=== PATIENT | female | born 1965 | race Caucasian/White ===

== ENCOUNTER → 2017-02-09 | Day surgery (SDC) | payer SELFPAY ==
[~2017-02-09] VITALS: Ht 154.9 cm; Wt 67.6 kg
[~2017-02-09] MED LIST: *HYDROmorphone PF 1 MG VIAL PERIprocedural Use ONLY ONE; *morphine SULFATE 8 MG/ML PERIprocedure ONLY ONE; ACETAMINOPHEN 1000 MG/100 ML 100 ML IV ONE; ACETAMINOPHEN/HYDROcodone 325 MG/7.5 MG TAB PO PRN; BUPIVACAINE/EPINEPHRINE 0.5% 50 ML VIAL ONE; CHLORHEXIDINE GLUCONATE 2 % 1 PACK (2 CLOTHS) TOPICAL PRN; CITA40TA4 PO; DEXAMETHASONE SOD PHOS 4 MG/ML VIAL ONE; DO NOT ADM ANY ANTICOAGULANT DRUGS PRN; FAMOTIDINE 20 MG/2 ML VIAL ONE; GENTAMICIN SULFATE 80 MG/2 ML VIAL ONE; HYDR-3533 PO; HYDR-3580 PO; INSULIN HUMAN REGULAR 1,000 UNITS/10 ML VIAL SQ PRN; LACTATED RINGER'S 1000 ML INJ 2,000 ML IV ONE; LACTATED RINGER'S 1000 ML IV PRN; LIDOCAINE HCL 1% PF 5 ML AMPULE OTHER ONE; METOPROLOL TARTRATE 25 MG TAB PO PRN; MIDAZOLAM HCL 2 MG/2 ML VIAL IV ONE; MIDAZOLAM HCL 2 MG/2 ML VIAL ONE; MORPHINE SULFATE 4 MG/ML INJ IV PUSH PRN; ONDANSETRON HCL 4 MG/2 ML VIAL IV PUSH ONE; POVIDONE IODINE 5% (ANTISEPSIS KIT) 4 APPLICATIONS EACH NARE PRN; PROPOFOL 200 MG/20 ML AMP IV ONE; SODIUM CHLORID 0.9% 500 ML IV PRN; TRIL150T PO; VANCOMYCIN 1000 MG/NS 250 ML (for <70 kg) IV SCH; ceFAZolin 2 GM PREMIX 50 ML IV SCH
[2017-02-09] MEDS: CHLORHEXIDINE GLUCONATE 4% SOLN 120 ML BTL TOPICAL SCH ×2 (06:48→06:57)
--- NOTE | 2017-02-09 09:43 | PD.OP ---
cc: Dariel Alfonso MD Operative Report Date of Surgery: Feb 09, 2017 Preoperative Diagnosis: Displaced right distal radius fracture Postoperative Diagnosis: Procedure: Open reduction total fixation right distal radius Anesthesia: Gen. Surgeon: Dariel Alfonso Operating Room Assistant(s): KRISTEN Louis PA-C The surgical procedure was assisted by my physician library technical assistant. My P.A. presence was necessary throughout this case for the manipulation and positioning of the surgical extremity. My P.A. was assisting me throughout the duration of this procedure. The skill set of a physician library technical assistant was medically necessary to complete this procedure. During the surgical case the surgical appliances salesperson was working at the back table and the physician library technical assistant was directly assisting me. Operation and Findings: Plan of activity : Nonweightbearing right hand , splint 2 weeks followed by removable wrist brace Patient was seen and evaluated preoperatively and found to have a displaced distal radius fracture. Informed consent was obtained after detailed discussion of risk and benefits including bleeding, infection, injury to arteries, nerves, and blood vessels, weakness and numbness of hand, and tendon rupture. Informed consent was obtained. Patient received IV antibiotics prior to incision. Timeout procedure was performed. Operative extremity was prepped with alcohol followed by Hibiclens and draped usual sterile fashion. A standard volar approach to the distal radius was utilized. A 3 inch incision was made over the FCR tendon. Tendon sheath was opened. Pronator quadratus was elevated up. The fracture site was now visualized. The fracture did have intra-articular extension. Traction was applied. The articular surface was reduced. Fracture fragments were manipulated to achieve excellent reduction. K wires were used to hold provisional fixation. Fluoroscopy confirmed appropriate alignment of fracture. A ITS variable angle distal radius plate was selected. Plate was provisionally fixed to bone with K wires. 2.7 and 2.4 cortical screws were used to compress plate to bone. Fluoroscopy confirmed appropriate alignment of fracture with well-placed hardware. Multiple 2.4 locking screws were now placed distally. Screws were predrilled and measured for appropriate length. 2 additional screws were placed into the shaft. K wires were removed. Final fluoroscopy revealed excellent of fracture with well- placed hardware. The wound was thoroughly irrigated with sterile saline. Subcutaneous tissue was closed with 3-0 Vicryl and skin was closed with 3-0 nylon. Sterile dressings were applied with Xeroform, 4 x 4, soft roll, and a well padded volar splint. Patient was awakened and transferred to recovery room in stable condition Dariel Alfonso MD Feb 09, 2017 09:43
--- NOTE | 2017-02-09 10:06 | RADRPT ---
EXAM DATE/TIME: 02/09/2017 09:24 [facility] COMPARISON: No previous studies available for comparison. INDICATIONS : Left wrist open reduction internal fixation. MEDICAL HISTORY : None. SURGICAL HISTORY : None. ENCOUNTER: Subsequent ACUITY: 1 day PAIN SCORE: Non-responsive. LOCATION: Left wrist FINDINGS: Two view examination of the right wrist demonstrates plate and screw fixation distal right radius. Ne ar-anatomic alignment. No complications identified. Arthropathy at the distal radioulnar joint. CONCLUSION: 1. Plate and screw fixation distal radius. Leo Hill MD on February 09, 2017 at 10:04 Board Certified Radiologist. This report was verified electronically.
[2017-02-09 11:50] VITALS: BP 118/77; PULSE 67; RESP 18; TEMP 97.5; O2SAT 94
--- NOTE | 2017-02-09 14:20 | EKG ---
Date Performed: 02/09/2017 Time Performed: 06:56:19 PTAGE: 51 years EKG: Sinus rhythm NORMAL ECG NO PREVIOUS TRACING DOCTOR: Everett Mixon Interpretating Date/Time 02/09/2017 14:14:07
--- NOTE | 2017-03-03 09:00 | PD.ORT.PN ---
Subjective Subjective Remarks stable in pacu Objective Objective Remarks RUE: +_splint. intact. +cap refill Assessment & Plan Assessment and Plan 1) Right Distal Radius Fx s/p ORIF -DC home -nwb -maintain splint -f/u Kiko Cabrera Mar 03, 2017 09:00
== END | disposition home or self-care (01) ==
LOC: HSDC 05:42
PROVIDERS: ATTEND Orthopaedic Surgery Orthopaedic Trauma
DX: S52.571A Other intraarticular fracture of lower end of right radius, initial encounter for closed fracture (principal); W18.39XA Other fall on same level, initial encounter; Y93.K1 Activity, walking an animal; F32.9 Major depressive disorder, single episode, unspecified; F17.210 Nicotine dependence, cigarettes, uncomplicated; Z79.899 Other long term (current) drug therapy
CPT/HCPCS: 01830; 25608; 73100; 76000; 93005; C1713; J0131; J0690; J1100; J1170; J1580; J2250; J2270; J2405; J3010; J3370; J7050; J7120